=== PATIENT | female | born 1945 | race Caucasian/White ===

== ENCOUNTER 2016-12-14 12:14 | Inpatient (IN) | payer OTHER, MEDICARE ==
[~2016-12-14] VITALS: Ht 154.9 cm; Wt 81.0 kg
[~2016-12-14 12:14] MED LIST: 1-ME1LIQ OR; ASPI81TA82 PO; BENA10 PO; GABA300C3 PO; LOVA20TA PO; MAGN250T9 OR; METO100T PO; POTA595T5 PO
[2016-12-20] MEDS ORDERED: PANT40TA3 PO ×2 (14:41)
[2016-12-20] MEDS ORDERED: POTA-163 PO ×2 (14:41)
[2016-12-20] MEDS ORDERED: GABA300C5 PO ×2 (14:41)
[2016-12-20] MEDS ORDERED: METO50TA PO ×2 (14:41)
[2016-12-20] MEDS ORDERED: MAGN400T2 PO ×2 (14:41)
[2016-12-20] MEDS ORDERED: METF500T PO ×2 (14:41)
[2016-12-20] MEDS ORDERED: LISI-515 PO ×2 (14:41)
[2016-12-20] MEDS ORDERED: LOVA20TA PO ×2 (14:41)
[2016-12-20] MEDS ORDERED: ASPI-110 PO ×2 (14:42)
[2016-12-20] MEDS ORDERED: PYRI1TAB5 PO ×2 (14:42)
[2016-12-22] VITALS (11 sets, daily range): BP systolic 114–153; BP diastolic 50–89; PULSE 60–75; RESP 10–16; TEMP 98.1–98.6; O2SAT 92–98
[2016-12-22] MEDS ORDERED: PROPOFOL 1000 MG/100 ML BTL IV ONE (05:00)
[2016-12-22] MEDS ORDERED: ceFAZolin 2 GM PREMIX 50 ML IV SCH (06:15)
[2016-12-22] MEDS ORDERED: SODIUM CHLORIDE 0.9% FLUSH 10 ML FLUSH IV FLUSH PRN ×3 (06:15→15:45)
[2016-12-22] MEDS ORDERED: METOPROLOL TARTRATE 25 MG TAB PO SCH (06:15)
[2016-12-22] MEDS ORDERED: CHLORHEXIDINE GLUCONATE 2 % 1 PACK (2 CLOTHS) TOPICAL PRN (06:15)
[2016-12-22] MEDS ORDERED: CHLORHEXIDINE GLUCONATE 4% SOLN 120 ML BTL TOPICAL SCH (06:15)
[2016-12-22] MEDS ORDERED: METOPROLOL TARTRATE 25 MG TAB PO PRN (06:15)
[2016-12-22] MEDS ORDERED: LACTATED RINGER'S 1000 ML IV PRN (06:15)
[2016-12-22] MEDS ORDERED: POVIDONE IODINE 5% (ANTISEPSIS KIT) 4 APPLICATIONS EACH NARE PRN (06:15)
[2016-12-22] MEDS ORDERED: SODIUM CHLORID 0.9% 500 ML IV PRN (06:15)
[2016-12-22] MEDS ORDERED: INSULIN HUMAN REGULAR 1,000 UNITS/10 ML VIAL SQ PRN (06:15)
[2016-12-22] MEDS ORDERED: FAMOTIDINE 20 MG/2 ML VIAL ONE (06:31)
[2016-12-22] MEDS ORDERED: HEPARIN SODIUM - SQ 10,000 UNITS/ML VIAL ONE (06:33)
[2016-12-22] MEDS ORDERED: ceFAZolin 2 GM PREMIX 50 ML ONE (06:33)
[2016-12-22] MEDS ORDERED: CUSTODIOL HTK IRR SOLN 1,000 ML ONE ×3 (06:59→12:42)
[2016-12-22] MEDS ORDERED: MANNITOL INJ 50 ML ONE (06:59)
[2016-12-22] MEDS ORDERED: POTASSIUM CHLORIDE 20 MEQ/10 ML VIAL ONE ×3 (06:59→11:41)
[2016-12-22] MEDS ORDERED: ALBUMIN HUMAN 25% 12.5 GM/50 ML BAGP IV ONE (07:00)
[2016-12-22] MEDS ORDERED: BUPIVACAINE LIPOSO PF 1.3% INJ 20 ML, DEXAMETHASONE INJ 4 MG, MORPHINE INJ 10 MG in SOD... P-ARTICULR SCH (07:00)
[2016-12-22] MEDS ORDERED: HEPARIN SODIUM - IV 10,000 UNITS/10 ML VIAL ONE ×2 (07:00→14:54)
[2016-12-22] MEDS ORDERED: CEFAZOLIN 500 MG in NS IRR BTL 500 ML IRRIGATION SCH (07:30)
[2016-12-22] MEDS ORDERED: INSULIN REGULAR 100 UNITS in NS 100 ML IV SCH (07:30)
[2016-12-22] MEDS ORDERED: POTASSIUM CHLORIDE 40 MEQ/20 ML VIAL ONE ×2 (10:26→12:42)
[2016-12-22] MEDS ORDERED: ceFAZolin INJ 1,000 MG VIAL ONE ×4 (11:39→14:31)
--- NOTE | 2016-12-22 13:19 | HHI.FF ---
Face to Face Verification Diagnosis: (1) Borderline diabetes (2) S/P AVR (aortic valve replacement) Home Health Nursing Order: Signs/symptoms of disease process Wound care and dressing changes Nursing assessment with vital signs Instructions: Heart and Vascular Surgery patients *Special attention to sternal dressing Mandatory frequency Assess and evaluation, 4 days in a row The next week 3X week 2 times a week for 4 weeks 1 time a week for 5 weeks Schedule Heart and Vascular patients for full 60 day certification period Initial visit Review Open Heart Surgery Discharge Instructions (Sternal precautions, Activity, Elastic hose, Incision care, Driving, Incentive spirometry, Smoking, [place], Work and other) Need Betadine to paint incision Medication reconciliation Importance of follow up care/ check on appointments Make calendar record temperature daily When to call [facility] at Home nurse, review instructions, phone list Incentive Spirometry, demonstration Visit 1- Begin discharge instruction for patient family and/ or caregiver using teach back method- Signs and symptoms of infection Disease characteristics Medicines and side effects Foods and nutrition/ appetite Infection control/ hand washing/ hygiene Visit 2- Continue teaching Discharge instructions- include additional information on smoking cessation , sternal dressing (sternal vac) Visit 3- Continue teaching- Cough and deep breathing, incision monitoring. Choose my plate Visit 4- Continue teaching- Discuss limitations Discuss how they are feeling Discuss progress toward goals Remaining visits- continue teaching and monitoring Incentive spirometry Q1 hr x 10, while awake, also use acapella device hourly whole awake Sternal Breast Bone Precautions: NO pushing or pulling, ( pt must use sternal pillow to support chest with all activities and with coughing ( takes up to 3 months breast bone to heal ) Daily incision care: ok to shower daily, no tub bath. Wash all incisions with liquid dial soap, clean wash cloth to each site, rinse and pat dry. Observe for any signs of infection, such as drainage which is dark yellow, mahajan, green or foul smelling. Immediately report to the surgeon any drainage from the chest incision, or legs, and for any abnormal drainage from the chest tube sites. Notify surgeon if any temp >101.5 degrees F. When specialty dressing removed/ or if you do not have one, continue to shower daily as above, then rinse and pat incision dry and paint with betadine daily x 5 days. Allow steri strips to fall off if you have any. Avoid lotions, creams, salves, oils, etc. for the first month Please see attached forms for additional instructions regarding post Open Heart specialty wound vacuum dressings. SHAYNE or Prevena , Dressing to be removed by Nursing staff on F/U appointment: as per DC instructions: PCP in 2 weeks, CV surgeon 2 weeks, Dietetic Intern 3-4 weeks For any questions regarding incisions/ dressing / meds / post op care or above Symptoms, Sunday 8am-5pm Heart & Vascular Surgery Office ( Dr. Fields & Dr. Garza), After Hours / Nights (5pm -8am) Weekends and Holidays Please call [facility] ([facility]) Charge Nurse I have seen patient Marybel Canales on 12/22/16. My clinical findings support the need for the requested home health care services because: Deconditioned w/ increased weakness I certify that my clinical findings support that this patient is homebound because: Post-op weakness Mariama Rivera Dec 22, 2016 13:19
[2016-12-22] MEDS ORDERED: PROTAMINE SULFATE 250 MG/25 ML VIAL IV ONE (13:27)
[2016-12-22] MEDS ORDERED: SODIUM CHLOR 0.9% 250 ML INJ 250 ML IV ONE (13:33)
[2016-12-22] MEDS ORDERED: LACTATED RINGER'S 1000 ML INJ 1,000 ML IV ONE (13:33)
[2016-12-22] MEDS ORDERED: SODIUM CHLORIDE 0.9% INJ 100 ML IV ONE (13:33)
[2016-12-22] MEDS ORDERED: SODIUM CHLOR 0.9% 1000 ML INJ 1,000 ML IV ONE (13:34)
[2016-12-22] MEDS ORDERED: SODIUM CHLORID 0.9% 500 ML INJ 500 ML IV ONE (13:34)
[2016-12-22] MEDS ORDERED: POTASSIUM CHLOR 40 MEQ PREMIX 100 ML ONE (14:53)
[2016-12-22] MEDS ORDERED: DOBUTamine PREMIX DRIP 250 ML IV SCH (15:32)
[2016-12-22] MEDS ORDERED: MAGNESIUM SULFATE INJ 2 GM in SODIUM CHLORIDE 0.9% INJ 100 ML IV PRN ×4 (15:45)
[2016-12-22] MEDS ORDERED: POTASSIUM CHLOR 20 MEQ PREMIX 100 ML IV PRN ×3 (15:45)
[2016-12-22] MEDS ORDERED: NITROGLYCERIN-DEXTROSE INJ 250 ML IV SCH (15:45)
[2016-12-22] MEDS ORDERED: INSULIN REGULAR (IV INFUSION) 100 UNITS in SODIUM CHLORIDE 0.9% INJ 99 ML IV SCH (15:45)
[2016-12-22] MEDS ORDERED: CALCIUM CHLORIDE 10% 1 GRAM/10 ML VIAL IV PRN (15:45)
[2016-12-22] MEDS ORDERED: RESP: ALBUTEROL 2.5 MG/IPRATROPIUM 0.5 MG NEB (PRN) NEB (15:45)
[2016-12-22] MEDS ORDERED: MORPHINE SULFATE 4 MG/ML INJ IV PRN (15:45)
[2016-12-22] MEDS ORDERED: DEXTROSE 50% IN WATER 50 ML VIAL(D50) IV PUSH PRN (15:45)
[2016-12-22] MEDS ORDERED: EPINEPHrine (1:1000) INJ 4 MG in DEXTROSE 5% IN WATER INJ 246 ML IV SCH ×2 (15:45)
[2016-12-22] MEDS ORDERED: MEPERIDINE HCL 25 MG/ML VIAL IV PRN (15:45)
[2016-12-22] MEDS ORDERED: PHENYLEPHRINE INJ 40 MG in DEXTROSE 5% IN WATE 500 ML INJ 496 ML IV SCH ×2 (15:45)
[2016-12-22] MEDS ORDERED: CALCIUM CHLORIDE INJ 1 GM in SODIUM CHLORIDE 0.9% INJ 100 ML IV PRN (15:45)
[2016-12-22] MEDS ORDERED: DOPamine INJ PREMIX 500 ML IV SCH (15:45)
[2016-12-22] MEDS ORDERED: POTASSIUM CHLORIDE 20 MEQ CONTROLLED RELEASE TAB PO PRN ×2 (15:45)
[2016-12-22] MEDS ORDERED: ACETAMINOPHEN 650 MG SUPP RECTAL PRN (15:45)
[2016-12-22] MEDS ORDERED: Post-op Orders (for Pharmacy) MISC OTHER ONE (15:45)
[2016-12-22] MEDS ORDERED: DEXMEDETOMIDINE INJ 200 MCG in SODIUM CHLORIDE 0.9% INJ 50 ML IV SCH (15:45)
[2016-12-22] MEDS ORDERED: RESP: RACEPINEPHRINE 2.25% 0.5 ML NEB NEB PRN (15:45)
[2016-12-22] MEDS ORDERED: ONDANSETRON HCL 4 MG/2 ML VIAL IV PUSH PRN (15:45)
[2016-12-22] MEDS ORDERED: CLEVIDIPINE INJ 50 ML IV SCH (15:45)
[2016-12-22] MEDS ORDERED: hydrALAZINE HCL 20 MG/ML VIAL IV PRN (15:45)
[2016-12-22] MEDS ORDERED: METOPROLOL TARTRATE 5 MG/5 ML VIAL IV PUSH PRN (15:45)
[2016-12-22] MEDS ORDERED: ALBUMIN HUMAN 5% 12.5 GM/250 ML BOTTLE IV PRN (15:45)
[2016-12-22] MEDS ORDERED: LACTATED RINGER'S 1000 ML INJ 500 ML IV PRN (16:00)
[2016-12-22] MEDS ORDERED: MIDAZOLAM HCL 5 MG/5 ML VIAL ONE (16:23)
[2016-12-22] MEDS ORDERED: fentaNYL CITRATE 1000 MCG/20 ML VIAL ONE (16:24)
[2016-12-22] MEDS: ACETAMINOPHEN 1000 MG/100 ML VIAL IV SCH ×2 (16:54→22:37)
--- NOTE | 2016-12-22 17:00 | RADRPT ---
EXAM DATE/TIME: 12/22/2016 16:20 [facility] COMPARISON: No previous studies available for comparison. INDICATIONS : Post open heart surgery. MEDICAL HISTORY : Hypertension. Arthritis. Hypercholesterolemia. Hyperlipidemia SURGICAL HISTORY : section. oophorectomy ENCOUNTER: Initial ACUITY: 1 day PAIN SCORE: Non-responsive. LOCATION: Bilateral chest FINDINGS: ET tube mediastinal drain chest drain and central line are in good position. The heart is enlarged. There is mild interstitial edema present. Minimal peripheral changes are seen in the left base. Th ere is no pneumothorax. CONCLUSION: Postoperative changes as described above. Benny Ferrell MD FACR on December 22, 2016 at 16:58 Board Certified Radiologist. This report was verified electronically.
--- NOTE | 2016-12-22 17:15 | PD.OP ---
cc: Cathie Fields MD Operative Report Date of Surgery: Dec 22, 2016 Preoperative Diagnosis: Postoperative Diagnosis: Procedure: 1. Minimally Invasive AVR with a 23 Mosaic Cinch Tissue Valve 2. Median Sternotomy with Repair of Ascending Aortic Disruption 3. Percutaneous Left Femoral Arterial Cannulation for CPB 4. Perclose Closure of Femoral Artery x 2 5. Intercostal Nerve Block . Surgeon: Cathie Fields Acute Dialysis Registered Nurse(s): Cyndi Lopez Operation and Findings: PREOPERATIVE DIAGNOSIS: 1. Severe Aortic Valve Stenosis 2. Moderate Aortic Insufficiency POSTOPERATIVE DIAGNOSIS: Same PROCEDURE: 1. Minimally Invasive AVR with a 23 Mosaic Cinch Tissue Valve 2. Median Sternotomy with Repair of Ascending Aortic Disruption 3. Percutaneous Left Femoral Arterial Cannulation for CPB 4. Perclose Closure of Femoral Artery x 2 5. Intercostal Nerve Block ANESTHESIA: JORDANA Daugherty MD TUBE SIZER OPERATOR: LARRY Houser INDICATIONS: This is a 71 yo patient with severe Aortic stenosis presenting for surgical correction of their underlying cardiac pathology. PROCEDURE: Standard monitoring lines and Mar catheter were placed. General anesthesia was induced. The patient was prepped and draped in a sterile fashion. The patient was heparinized for cardiopulmonary bypass. The left femoral artery was cannulated percutaneously with a 17 Fr [employer] arterial cannula, following placement of 2 Perclose devices. A 6 cm right anterior thoracotomy was performed and the 3rd rib was shingled. The right internal mammary artery and vein were ligated and divided. An Adair retractor was placed followed by a small chest retractor. The pericardium was opened and a pericardial sling was created using interrupted 0 silk sutures. A small 1 cm incision was made at the 6th intercostal space and an LV vent and pericardial suction were placed through this access port. The right atrium was cannulated directly for venous drainage and cardiopulmonary bypass was instituted. The LV vent was placed through the Right Superior Pulmonary Vein. The aorta was dissected posteriorly for crossclamp placement. An aortic cross-clamp was applied and the heart was arrested using cold blood cardioplegia. Antegrade Custodiol cardioplegia was employed. 1 L of antegrade Custodiol cardioplegia was infused directly into the aortic root. Additionally, hand-held coronary cardioplegia cannula was used during the procedure. The aorta was opened above the sinotubular ridge and the aortic valve was exposed. On opening the aorta, the valve appeared severely and very heavily calcified with retracted cusps. The valve was resected as well as all annular calcification, sized for a 23 mm Mosaic tissue valve which was placed with 2-0 pledgeted Tycron valve sutures. The valve seated well. The aorta was closed with two layers of running 4-0 Prolene suture, the first in a horizontal mattress fashion and the second layer of simple running. The patient systemically rewarmed. The heart was vigorously deaired with a clamp on. Ventricular pacing wire was placed. The clamp was removed, deairing continued. At this point it was noted that her aortic tissue was very friable and not holding the closure stitches. The cross clamp was reapplied and the heart arrested with cardioplegia solution. Additional pledgeted 4-0 Prolene stitches were placed in efforts to obtain a hemostatic aortotomy closure. The tissue was very friable and the sutures not holding. Therefore, it was decided to convert to a median sternotomy to facilitate adequate exposure to fix the aorta. Median sternotomy was performed and the heart exposed anteriorly. The entire suture line was then reinforced with interrupted pledgeted mattress sutures of 4-0 Prolene in addition to application of Floseal and Tacoseal. Satisfactory hemostasis was obtained, although her [place] tissue was noted to be very friable and of very poor tensile strength. Cross-clamp was removed. Upon achieving normothermia and intrinsic cardiac activity, the patient was weaned from cardiopulmonary bypass. Strict hemostasis was assured and Protamine administered. Decannulation was carried out without incident and both the femoral artery was closed with the Perclose devices. There was no adverse reaction. Intraoperative ANA PAULA following the procedure showed a well-seated aortic valve with no perivalvular leak and preserved ventricular function. The closure was undertaken. 2 chest tubes were placed. The sternum was approximated using sternal wires. The muscular and fascial layer were then closed in 3 layers. The 3rd rib was reapproximated to the sternum using an interrupted Ethobond suture and to the adjacent rib with a 0 Vicryl suture. Intercostal nerve block was preformed at the level of the incision as well as 2 rib spaces above and below using Exparel solution. The fascia and pectoralis were closed with 0 Vicryl. The subcutaneous tissue was closed using a running 3-0 Monocryl suture. The skin was closed with 4-0 Monocryl. Sterile dressings were placed. At the end of the operation, all sponge, instruments, and needle counts were correct. The patient was transferred to the CVICU in stable condition. Cathie Fields MD Dec 22, 2016 17:15
[2016-12-22 17:40] LABS: APTT (PATIENT) 29.8 SEC (24.3-30.1); INTERNATIONAL NORMALIZED RATIO 1.2 RATIO; PROTHROMBIN TIME - PATIENT 13.4 SEC (9.8-11.6)
[2016-12-22] MEDS: RESP: ALBUTEROL 2.5 MG/IPRATROPIUM 0.5 MG NEB (SCH) NEB ×2 (18:40→21:07)
[2016-12-22] MEDS: AMIODARONE 200 MG TAB PO SCH (22:35)
[2016-12-22] MEDS: SODIUM CHLORIDE 0.9% FLUSH 10 ML FLUSH IV FLUSH SCH (22:37)
[2016-12-23] VITALS (13 sets, daily range): BP systolic 86–131; BP diastolic 50–67; PULSE 77–111; RESP 11–22; TEMP 98.5–101.3; O2SAT 92–100
[2016-12-23] MEDS: ceFAZolin 2 GM PREMIX 50 ML IV SCH ×3 (00:18→17:34)
[2016-12-23] MEDS: ACETAMINOPHEN 1000 MG/100 ML VIAL IV SCH ×2 (03:38→10:08)
[2016-12-23] MEDS: RESP: ALBUTEROL 2.5 MG/IPRATROPIUM 0.5 MG NEB (SCH) NEB ×4 (04:31→20:42)
[2016-12-23 05:15] LABS: HEMATOCRIT 26.3 % (35.0-46.0); MEAN CELL VOLUME 91.4 FL (80.0-100.0); MEAN CORPUSCULAR HEMOGLOBIN 31.1 PG (27.0-34.0); MEAN CORPUSCULAR HGB CONC 34.1 % (32.0-36.0); PLATELET COUNT 86 TH/MM3 (150-450); RED BLOOD COUNT 2.87 MIL/MM3 (4.00-5.30); RED CELL DISTRIBUTION WIDTH 14.1 % (11.6-17.2); WHITE BLOOD COUNT 9.2 TH/MM3 (4.0-11.0)
--- NOTE | 2016-12-23 05:27 | RADRPT ---
EXAM DATE/TIME: 12/23/2016 04:01 [facility] COMPARISON: CHEST SINGLE AP, December 22, 2016, 16:20. INDICATIONS : Shortness of breath, possible pulmonary disease. MEDICAL HISTORY : Hypercholesterolemia. Hypertension Arthritis. SURGICAL HISTORY : section. CABG. Oophrectomy ENCOUNTER: Subsequent ACUITY: 3 days PAIN SCORE: Non-responsive. LOCATION: Bilateral chest FINDINGS: A single view of the chest demonstrates persistent bibasilar patchy airspace disease which may be sli ghtly worse when compared to prior. There also could be developing effusions. Heart size remains prom inent. Findings of prior CABG with median sternotomy wires and mediastinal drains. Right IJ central v enous catheter with the tip projecting over the central venous system. Endotracheal tube and nasogast alexandr tubes have been removed. CONCLUSION: 1. Worsening bibasilar airspace disease with possible developing effusions. 2. Stable postsurgical changes with findings of prior CABG. 3. Interval removal of the endotracheal and nasogastric tubes. Mediastinal drains and the right IJ ce ntral venous catheter are unchanged in position. 4. Stable cardiomegaly. Soy Woods MD on December 23, 2016 at 5:22 Board Certified Radiologist. This report was verified electronically.
[2016-12-23 05:33] LABS: REVIEW FLAG FINAL
[2016-12-23 05:51] LABS: BICARBONATE 29.6 MEQ/L (21.0-32.0); POTASSIUM 3.6 MEQ/L (3.5-5.1)
[2016-12-23] MEDS: PANTOPRAZOLE SOD 40 MG DELAYED RELEASE TAB PO SCH (06:00)
[2016-12-23] MEDS: ACETAMINOPHEN/HYDROcodone 325 MG/5 MG TAB PO PRN ×3 (06:51→22:12)
--- NOTE | 2016-12-23 08:12 | PD.CAR.PN ---
CVT Progress Note Subjective/Hospital Course: 71 yo female with symptomatic and AI presenting for AVR 12/22 Underwent 1. Minimally Invasive AVR with a 23 Mosaic Cinch Tissue Valve 2. Median Sternotomy with Repair of Ascending Aortic Disruption 3. Percutaneous Left Femoral Arterial Cannulation for CPB 4. Perclose Closure of Femoral Artery x 2 5. Intercostal Nerve Block 12/23 Extubated and tolerating Beta annamarie therapy Diuresis Maintain CT to drainage Keep in ICU for today Incentive spirometry Objective: Vital Signs Date Time Temp Pulse Resp B/P Pulse Ox O2 Delivery O2 Flow Rate FiO2 12/23/16 06:36 22 12/23/16 04:10 20 12/23/16 04:00 100 12/23/16 04:00 94 Simple Mask 10.00 12/23/16 04:00 99.7 100 22 94 118/61 12/23/16 03:30 107 12/23/16 03:00 90 Simple Mask 8.00 12/23/16 02:33 96 Nasal Cannula 4 36 12/23/16 02:30 90 Nasal Cannula 6.00 12/23/16 02:00 92 Nasal Cannula 4.00 12/23/16 01:45 99.7 12/23/16 00:15 98 50 12/23/16 00:00 99.7 77 11 114/65 97 117/60 12/23/16 00:00 50 12/23/16 00:00 77 12/22/16 23:30 74 12/22/16 22:20 96 50 12/22/16 22:00 98.6 12/22/16 22:00 50 12/22/16 21:00 50 12/22/16 20:00 40 12/22/16 20:00 75 12/22/16 20:00 75 12/22/16 20:00 98.6 75 15 115/64 92 116/74 12/22/16 19:40 15 12/22/16 19:38 92 40 12/22/16 19:00 40 12/22/16 17:45 94 40 12/22/16 17:10 93 40 12/22/16 16:35 93 50 12/22/16 16:15 98.4 12/22/16 16:15 98.4 74 10 118/66 92 114/50 12/22/16 16:15 74 12/22/16 16:12 98 50 Labs: Laboratory Tests Test 12/23/16 05:00 White Blood Count 9.2 TH/MM3 (4.0-11.0) Red Blood Count 2.87 MIL/MM3 (4.00-5.30) Hemoglobin 8.9 GM/DL (11.6-15.3) Hematocrit 26.3 % (35.0-46.0) Mean Corpuscular Volume 91.4 FL (80.0-100.0) Mean Corpuscular Hemoglobin 31.1 PG (27.0-34.0) Mean Corpuscular Hemoglobin 34.1 % Concent (32.0-36.0) Red Cell Distribution Width 14.1 % (11.6-17.2) Platelet Count 86 TH/MM3 (150-450) Mean Platelet Volume 9.8 FL (7.0-11.0) Sodium Level 146 MEQ/L (136-145) Potassium Level 3.6 MEQ/L (3.5-5.1) Chloride Level 108 MEQ/L (98-107) Carbon Dioxide Level 29.6 MEQ/L (21.0-32.0) Anion Gap 8 MEQ/L (5-15) Blood Urea Nitrogen 19 MG/DL (7-18) Creatinine 0.76 MG/DL (0.50-1.00) Estimat Glomerular Filtration 75 ML/MIN (>89) Rate Random Glucose 100 MG/DL (74-106) Calcium Level 8.2 MG/DL (8.5-10.1) Magnesium Level 2.0 MG/DL (1.5-2.5) Result Diagram: 12/23/16 0500 12/23/16 0500 (1) Aortic stenosis (2) S/P AVR (aortic valve replacement) Problem Qualifiers (1) Aortic stenosis: Qualified Code: I35.0 - Nonrheumatic aortic valve stenosis Cathie Fields MD Dec 23, 2016 08:12
[2016-12-23] MEDS ORDERED: FUROSEMIDE 40 MG/4 ML VIAL IV PUSH ONE ×2 (08:15→08:30)
[2016-12-23] MEDS: KETOROLAC TROMETHAMINE 30 MG/ML (IVP) VIAL IV PUSH PRN ×2 (08:44→22:13)
[2016-12-23] MEDS: PRAVASTATIN SOD 20 MG TAB PO SCH (08:45)
[2016-12-23] MEDS: GABAPENTIN 300 MG CAP PO SCH ×3 (08:46→17:34)
[2016-12-23] MEDS: AMIODARONE 200 MG TAB PO SCH ×2 (08:46→22:06)
[2016-12-23] MEDS: MAGNESIUM OXIDE 400 MG TAB PO SCH (08:46)
[2016-12-23] MEDS: SODIUM CHLORIDE 0.9% FLUSH 10 ML FLUSH IV FLUSH SCH ×2 (08:46→22:07)
[2016-12-23] MEDS ORDERED: METOPROLOL TARTRATE 50 MG TAB PO SCH ×2 (09:00)
[2016-12-23] MEDS ORDERED: ASPIRIN 81 MG CHEW TAB PO SCH (09:00)
[2016-12-23] MEDS ORDERED: DEXTROSE 50% IN WATER 50 ML VIAL(D50) IV PUSH PRN ×2 (13:15→20:45)
[2016-12-23] MEDS ORDERED: GLUCAGON 1 MG/ML VIAL OTHER PRN ×2 (13:15→20:45)
[2016-12-23] MEDS: INDIVIDUALIZED INSULIN NOVOLOG SUPPLEMENTAL SCALE SQ SCH ×3 (13:59→22:00)
--- NOTE | 2016-12-23 15:32 | EKG ---
Date Performed: 12/23/2016 Time Performed: 05:30:06 PTAGE: 71 years EKG: Sinus rhythm . --- Suspect arm lead reversal - only aVF, V1-V6 analyzed --- Possible left ventricular hypertrophy Extensive ST-T changes are probably due to ventricular hypertrophy Abnormal ECG Compared to the PREVIOUS TRACING from 12/20/16, probable arm lead reversal affects comparison DOCTOR: Nba Pretty Interpretating Date/Time 12/23/2016 15:31:45
[2016-12-23] MEDS ORDERED: PLEASE DISCONTINUE PREVIOUS SUPPLEMENTAL SCALE INSULIN ORDERS ONE (20:45)
[2016-12-23] MEDS ORDERED: INDIVIDUALIZED INSULIN NOVOLOG SUPPLEMENTAL SCALE SQ SCH (21:00)
[2016-12-23] MEDS: METOPROLOL TARTRATE 25 MG TAB PO SCH (22:06)
[2016-12-24] VITALS (23 sets, daily range): BP systolic 101–150; BP diastolic 45–72; PULSE 70–94; RESP 16–20; TEMP 98.2–100.3; O2SAT 92–100
[2016-12-24] MEDS: ceFAZolin 2 GM PREMIX 50 ML IV SCH ×2 (00:10→08:27)
[2016-12-24 05:13] LABS: HEMATOCRIT 24.6 % (35.0-46.0); MEAN CELL VOLUME 92.1 FL (80.0-100.0); MEAN CORPUSCULAR HEMOGLOBIN 30.9 PG (27.0-34.0); MEAN CORPUSCULAR HGB CONC 33.5 % (32.0-36.0); PLATELET COUNT 89 TH/MM3 (150-450); RED BLOOD COUNT 2.67 MIL/MM3 (4.00-5.30); RED CELL DISTRIBUTION WIDTH 14.3 % (11.6-17.2); WHITE BLOOD COUNT 9.2 TH/MM3 (4.0-11.0)
[2016-12-24 05:17] LABS: REVIEW FLAG FINAL
[2016-12-24] MEDS: PANTOPRAZOLE SOD 40 MG DELAYED RELEASE TAB PO SCH (05:17)
[2016-12-24] MEDS: ACETAMINOPHEN/HYDROcodone 325 MG/5 MG TAB PO PRN ×4 (05:18→23:35)
[2016-12-24 05:28] LABS: BICARBONATE 36.6 MEQ/L (21.0-32.0)
[2016-12-24] MEDS: INDIVIDUALIZED INSULIN NOVOLOG SUPPLEMENTAL SCALE SQ SCH ×5 (06:10→21:00)
[2016-12-24] MEDS: RESP: ALBUTEROL 2.5 MG/IPRATROPIUM 0.5 MG NEB (SCH) NEB ×2 (08:13→15:59)
--- NOTE | 2016-12-24 08:25 | PD.CAR.PN ---
CVT Progress Note Subjective/Hospital Course: 71 yo female with symptomatic and AI presenting for AVR 12/22 Underwent 1. Minimally Invasive AVR with a 23 Mosaic Cinch Tissue Valve 2. Median Sternotomy with Repair of Ascending Aortic Disruption 3. Percutaneous Left Femoral Arterial Cannulation for CPB 4. Perclose Closure of Femoral Artery x 2 5. Intercostal Nerve Block 12/23 Extubated and tolerating Beta annamarie therapy Diuresis Maintain CT to drainage Keep in ICU for today Incentive spirometry 12/24 Doing well Transfer [facility] Pulmonary toiletry Ambulate Objective: Vital Signs Date Time Temp Pulse Resp B/P Pulse Ox O2 Delivery O2 Flow Rate FiO2 12/24/16 08:03 95 Nasal Cannula 4.00 12/24/16 08:02 99.3 85 16 118/64 97 Arterial Line 12/24/16 08:02 97 Nasal Cannula 4.00 12/24/16 06:24 20 12/24/16 04:00 95 Nasal Cannula 4.00 Humidified 12/24/16 04:00 92 12/24/16 04:00 99.9 92 20 119/63 92 12/24/16 00:00 100.0 90 20 104/51 97 12/24/16 00:00 90 12/23/16 23:58 96 Nasal Cannula 4.00 Humidified 12/23/16 23:15 20 12/23/16 20:42 94 Nasal Cannula 5.00 12/23/16 20:00 101.3 100 20 131/67 95 12/23/16 19:45 95 Nasal Cannula 5.00 Humidified 12/23/16 19:00 96 12/23/16 15:00 98.5 98 16 119/54 94 12/23/16 15:00 98 12/23/16 15:00 92 Nasal Cannula 4.00 Humidified 12/23/16 15:00 98 12/23/16 11:56 74 12/23/16 11:56 77 12/23/16 11:56 100 Nasal Cannula 4.00 Humidified 12/23/16 11:56 98.5 77 16 86/51 100 12/23/16 09:42 92 Nasal Cannula 6.00 Labs: Laboratory Tests Test 12/24/16 04:40 White Blood Count 9.2 TH/MM3 (4.0-11.0) Red Blood Count 2.67 MIL/MM3 (4.00-5.30) Hemoglobin 8.2 GM/DL (11.6-15.3) Hematocrit 24.6 % (35.0-46.0) Mean Corpuscular Volume 92.1 FL (80.0-100.0) Mean Corpuscular Hemoglobin 30.9 PG (27.0-34.0) Mean Corpuscular Hemoglobin 33.5 % Concent (32.0-36.0) Red Cell Distribution Width 14.3 % (11.6-17.2) Platelet Count 89 TH/MM3 (150-450) Mean Platelet Volume 10.7 FL (7.0-11.0) Sodium Level 142 MEQ/L (136-145) Potassium Level 4.0 MEQ/L (3.5-5.1) Chloride Level 105 MEQ/L (98-107) Carbon Dioxide Level 36.6 MEQ/L (21.0-32.0) Anion Gap 0 MEQ/L (5-15) Blood Urea Nitrogen 34 MG/DL (7-18) Creatinine 0.76 MG/DL (0.50-1.00) Estimat Glomerular Filtration 75 ML/MIN (>89) Rate Random Glucose 141 MG/DL (74-106) Calcium Level 7.9 MG/DL (8.5-10.1) Result Diagram: 12/24/1643912/24/16439 (1) Aortic stenosis (2) S/P AVR (aortic valve replacement) Problem Qualifiers (1) Aortic stenosis: Qualified Code: I35.0 - Nonrheumatic aortic valve stenosis Cathie Fields MD Dec 24, 2016 08:25
[2016-12-24] MEDS ORDERED: DEXTROSE 50% IN WATER 50 ML VIAL(D50) IV PRN (08:30)
[2016-12-24] MEDS ORDERED: SOD PHOSPHATE/SOD BIPHOSPHATE (ADULT) ENEMA 133ML RECTAL PRN (08:30)
[2016-12-24] MEDS ORDERED: GLUCAGON 1 MG/ML VIAL OTHER PRN (08:30)
[2016-12-24] MEDS ORDERED: BISACODYL 10 MG SUPP RECTAL PRN (08:30)
[2016-12-24] MEDS: GABAPENTIN 300 MG CAP PO SCH (08:32)
[2016-12-24] MEDS: PRAVASTATIN SOD 20 MG TAB PO SCH (08:32)
[2016-12-24] MEDS: METOPROLOL TARTRATE 25 MG TAB PO SCH ×2 (08:32→20:10)
[2016-12-24] MEDS: AMIODARONE 200 MG TAB PO SCH ×2 (08:32→20:10)
[2016-12-24] MEDS: MAGNESIUM OXIDE 400 MG TAB PO SCH (08:32)
[2016-12-24] MEDS: SODIUM CHLORIDE 0.9% FLUSH 10 ML FLUSH IV FLUSH SCH ×2 (08:40→20:25)
[2016-12-24] MEDS: ASPIRIN 81 MG CHEW TAB PO SCH (08:43)
[2016-12-24] MEDS: MAGNESIUM HYDROXIDE SUSP 30 ML CUP PO SCH (09:15)
[2016-12-24] MEDS: MULTIVITAMINS/MINERALS THERAPEUTIC TAB PO SCH (09:15)
[2016-12-24] MEDS: CLOPIDOGREL 75 MG TAB PO SCH (09:15)
[2016-12-24] MEDS: KETOROLAC TROMETHAMINE 30 MG/ML (IVP) VIAL IV PUSH PRN (10:51)
[2016-12-24] MEDS: GABAPENTIN 400 MG CAP PO SCH (20:10)
[2016-12-24] MEDS: DOCUSATE SODIUM 100 MG CAP PO SCH (20:10)
[2016-12-24] MEDS: SENNOSIDES 8.6 MG TAB PO SCH (20:10)
[2016-12-25] VITALS (26 sets, daily range): BP systolic 104–161; BP diastolic 58–79; PULSE 72–99; RESP 16–18; TEMP 98.2–99.4; O2SAT 96–100
[2016-12-25] MEDS: PANTOPRAZOLE SOD 40 MG DELAYED RELEASE TAB PO SCH (04:27)
[2016-12-25] MEDS: ACETAMINOPHEN/HYDROcodone 325 MG/5 MG TAB PO PRN ×4 (04:28→17:48)
[2016-12-25 04:53] LABS: AUTOMATED NEUTROPHIL # 6.2 TH/MM3 (1.8-7.7); BASOPHIL % 0.3 % (0.0-2.0); EOSINOPHIL % 0.5 % (0.0-4.0); LYMPH % 15.9 % (9.0-44.0); LYMPHOCYTE # 1.4 TH/MM3 (1.0-4.8); MEAN CELL VOLUME 92.1 FL (80.0-100.0); MEAN CORPUSCULAR HEMOGLOBIN 31.4 PG (27.0-34.0); MEAN CORPUSCULAR HGB CONC 34.1 % (32.0-36.0); NEUT % 69.3 % (16.0-70.0); PLATELET COUNT 94 TH/MM3 (150-450); RED CELL DISTRIBUTION WIDTH 14.4 % (11.6-17.2); WHITE BLOOD COUNT 8.9 TH/MM3 (4.0-11.0)
[2016-12-25 04:54] LABS: HEMO FLAGS AUTO DIFF
[2016-12-25 05:14] LABS: BICARBONATE 36.3 MEQ/L (21.0-32.0); MAGNESIUM 2.2 MG/DL (1.5-2.5); POTASSIUM 4.1 MEQ/L (3.5-5.1)
[2016-12-25 05:57] LABS: PLATELET ESTIMATE SMEAR LOW (NORMAL); PLATELET MORPHOLOGY NORMAL (NORMAL); SCAN/DIFF AUTO DIFF CONFIRMED
[2016-12-25] MEDS: INDIVIDUALIZED INSULIN NOVOLOG SUPPLEMENTAL SCALE SQ SCH ×4 (06:08→20:24)
[2016-12-25] MEDS: RESP: ALBUTEROL 2.5 MG/IPRATROPIUM 0.5 MG NEB (SCH) NEB ×3 (08:00→21:01)
[2016-12-25] MEDS: MULTIVITAMINS/MINERALS THERAPEUTIC TAB PO SCH (09:00)
[2016-12-25] MEDS: SODIUM CHLORIDE 0.9% FLUSH 10 ML FLUSH IV FLUSH SCH ×2 (09:00→20:20)
[2016-12-25] MEDS ORDERED: BISACODYL 10 MG SUPP RECTAL ONE (09:30)
[2016-12-25] MEDS: AMIODARONE 200 MG TAB PO SCH ×2 (09:53→20:20)
[2016-12-25] MEDS: GABAPENTIN 400 MG CAP PO SCH ×2 (09:53→20:20)
[2016-12-25] MEDS: CLOPIDOGREL 75 MG TAB PO SCH (09:53)
[2016-12-25] MEDS: DOCUSATE SODIUM 100 MG CAP PO SCH ×2 (09:53→20:20)
[2016-12-25] MEDS: MAGNESIUM OXIDE 400 MG TAB PO SCH (09:53)
[2016-12-25] MEDS: METOPROLOL TARTRATE 25 MG TAB PO SCH ×2 (09:54→20:20)
[2016-12-25] MEDS: MAGNESIUM HYDROXIDE SUSP 30 ML CUP PO SCH (09:54)
[2016-12-25] MEDS: ASPIRIN 81 MG CHEW TAB PO SCH (09:54)
[2016-12-25] MEDS: POLYETHYLENE GLYCOL 17 GM PKG PO SCH (09:54)
[2016-12-25] MEDS: PRAVASTATIN SOD 20 MG TAB PO SCH (09:54)
[2016-12-25] MEDS ORDERED: FUROSEMIDE 40 MG/4 ML VIAL IV PUSH ONE (11:30)
[2016-12-25] MEDS ORDERED: POTASSIUM CHLORIDE 20 MEQ CONTROLLED RELEASE TAB PO ONE (11:30)
--- NOTE | 2016-12-25 14:41 | PD.CAR.PN ---
CVT Progress Note Subjective/Hospital Course: 71 yo female with symptomatic and AI presenting for AVR PMH: DM, GERD, HTN, HLP, venous insuff , mild non=hemodynamically significant coronary disease, preserved LV function 12/22 Underwent 1. Minimally Invasive AVR with a 23 Mosaic Cinch Tissue Valve 2. Median Sternotomy with Repair of Ascending Aortic Disruption 3. Percutaneous Left Femoral Arterial Cannulation for CPB 4. Perclose Closure of Femoral Artery x 2 5. Intercostal Nerve Block 12/23 Extubated and tolerating Beta annamarie therapy Diuresis Maintain CT to drainage Keep in ICU for today Incentive spirometry 12/24 Doing well Transfer [facility] Pulmonary toiletry Ambulate 12/25 chest tubes dc without difficulty on nasal cannula continue pulm toileting continue diuresis Objective: GENERAL: SKIN: Warm and dry. prevena to chest / right upper chest incision intact and well approximated HEAD: Normocephalic. EYES: No scleral icterus. No injection or drainage. NECK: Supple, trachea midline. No JVD or lymphadenopathy. CARDIOVASCULAR: Regular rate and rhythm without murmurs, gallops, or rubs. mild edema RESPIRATORY: Breath sounds equal bilaterally. No accessory muscle use. GASTROINTESTINAL: Abdomen soft, non-tender, nondistended. MUSCULOSKELETAL: No cyanosis, or edema. BACK: Nontender without obvious deformity. No CVA tenderness. Vital Signs Date Time Temp Pulse Resp B/P Pulse Ox O2 Delivery O2 Flow Rate FiO2 12/25/16 14:02 79 12/25/16 13:05 78 12/25/16 12:10 80 12/25/16 11:35 18 12/25/16 11:00 98.6 96 18 112/74 97 12/25/16 11:00 Nasal Cannula 3.00 12/25/16 11:00 76 12/25/16 10:00 99 12/25/16 09:00 92 12/25/16 08:14 100 Nasal Cannula 2.00 12/25/16 08:00 98.2 96 16 136/74 98 12/25/16 08:00 Room Air 12/25/16 08:00 96 12/25/16 06:04 79 12/25/16 05:00 77 12/25/16 04:00 85 12/25/16 04:00 98.9 78 18 107/66 100 12/25/16 03:12 100 Nasal Cannula 4.00 12/25/16 03:00 72 12/25/16 02:00 78 12/25/16 01:00 76 12/25/16 00:00 80 12/25/16 00:00 100 Nasal Cannula 4.00 12/24/16 23:19 98.7 75 18 113/63 100 12/24/16 23:00 70 12/24/16 22:59 100 Nasal Cannula 4.00 12/24/16 22:00 74 12/24/16 21:40 98.8 12/24/16 21:00 82 12/24/16 20:30 99.8 12/24/16 20:00 90 12/24/16 20:00 98 Nasal Cannula 4.00 12/24/16 19:26 99.6 90 20 127/64 98 12/24/16 19:00 90 12/24/16 18:00 94 12/24/16 17:03 91 12/24/16 17:01 98.3 92 19 150/72 93 12/24/16 15:36 85 12/24/16 15:29 92 Nasal Cannula 4.00 12/24/16 15:29 98.6 80 18 124/63 92 Labs: Laboratory Tests Test 12/25/16 04:43 White Blood Count 8.9 TH/MM3 (4.0-11.0) Red Blood Count 2.50 MIL/MM3 (4.00-5.30) Hemoglobin 7.8 GM/DL (11.6-15.3) Hematocrit 23.0 % (35.0-46.0) Mean Corpuscular Volume 92.1 FL (80.0-100.0) Mean Corpuscular Hemoglobin 31.4 PG (27.0-34.0) Mean Corpuscular Hemoglobin 34.1 % Concent (32.0-36.0) Red Cell Distribution Width 14.4 % (11.6-17.2) Platelet Count 94 TH/MM3 (150-450) Mean Platelet Volume 9.5 FL (7.0-11.0) Neutrophils (%) (Auto) 69.3 % (16.0-70.0) Lymphocytes (%) (Auto) 15.9 % (9.0-44.0) Monocytes (%) (Auto) 14.0 % (0.0-8.0) Eosinophils (%) (Auto) 0.5 % (0.0-4.0) Basophils (%) (Auto) 0.3 % (0.0-2.0) Neutrophils # (Auto) 6.2 TH/MM3 (1.8-7.7) Lymphocytes # (Auto) 1.4 TH/MM3 (1.0-4.8) Monocytes # (Auto) 1.3 TH/MM3 (0-0.9) Eosinophils # (Auto) 0.0 TH/MM3 (0-0.4) Basophils # (Auto) 0.0 TH/MM3 (0-0.2) CBC Comment AUTO DIFF Differential Comment AUTO DIFF CONFIRMED Platelet Estimate LOW (NORMAL) Platelet Morphology Comment NORMAL (NORMAL) Basophilic Stippling FAINT (NORMAL) Sodium Level 142 MEQ/L (136-145) Potassium Level 4.1 MEQ/L (3.5-5.1) Chloride Level 102 MEQ/L (98-107) Carbon Dioxide Level 36.3 MEQ/L (21.0-32.0) Anion Gap 4 MEQ/L (5-15) Blood Urea Nitrogen 24 MG/DL (7-18) Creatinine 0.54 MG/DL (0.50-1.00) Estimat Glomerular Filtration 111 ML/MIN Rate (>89) Random Glucose 126 MG/DL (74-106) Calcium Level 8.0 MG/DL (8.5-10.1) Magnesium Level 2.2 MG/DL (1.5-2.5) Result Diagram: 12/25/1644212/25/16442 Telemetry: NSR (1) Aortic stenosis (2) S/P AVR (aortic valve replacement) Plan: ASA, plavix , BB statin continue pulm toileting nebs, ezpap acapella ambulate chest tubes dc CM to eval C (3) Blood loss anemia Plan: start on ferrous sulfate Problem Qualifiers (1) Aortic stenosis: Qualified Code: I35.0 - Nonrheumatic aortic valve stenosis Mariama Rivera Dec 25, 2016 14:41
[2016-12-25] MEDS: FERROUS SULFATE 325 MG (65 MG ELEMENTAL IRON) TAB PO SCH (17:11)
[2016-12-25] MEDS: SENNOSIDES 8.6 MG TAB PO SCH (20:20)
[2016-12-26] VITALS (29 sets, daily range): BP systolic 113–144; BP diastolic 67–77; PULSE 64–104; RESP 18–20; TEMP 97.5–99; O2SAT 91–100
[2016-12-26] MEDS: ACETAMINOPHEN/HYDROcodone 325 MG/5 MG TAB PO PRN ×2 (01:45→08:58)
[2016-12-26] MEDS: PANTOPRAZOLE SOD 40 MG DELAYED RELEASE TAB PO SCH (05:35)
[2016-12-26 05:52] LABS: HEMATOCRIT 23.7 % (35.0-46.0); MEAN CELL VOLUME 93.1 FL (80.0-100.0); MEAN CORPUSCULAR HEMOGLOBIN 30.7 PG (27.0-34.0); MEAN CORPUSCULAR HGB CONC 32.9 % (32.0-36.0); PLATELET COUNT 116 TH/MM3 (150-450); RED BLOOD COUNT 2.54 MIL/MM3 (4.00-5.30); RED CELL DISTRIBUTION WIDTH 14.1 % (11.6-17.2); REVIEW FLAG FINAL; WHITE BLOOD COUNT 8.5 TH/MM3 (4.0-11.0)
[2016-12-26 06:05] LABS: BICARBONATE 33.4 MEQ/L (21.0-32.0); POTASSIUM 3.7 MEQ/L (3.5-5.1)
[2016-12-26] MEDS: INDIVIDUALIZED INSULIN NOVOLOG SUPPLEMENTAL SCALE SQ SCH ×4 (06:17→20:34)
--- NOTE | 2016-12-26 06:31 | RADRPT ---
EXAM DATE/TIME: 12/26/2016 05:39 [facility] COMPARISON: CHEST SINGLE AP, December 23, 2016, 4:01. INDICATIONS : Short of breath. MEDICAL HISTORY : Hypercholesterolemia. Hypertension Arthritis. SURGICAL HISTORY : section. CABG. Oophrectomy ENCOUNTER: Subsequent ACUITY: 1 week PAIN SCORE: 0/10 LOCATION: Bilateral chest FINDINGS: Bilateral airspace consolidation again noted, slightly worse. There is a small moderate pleural effus ion on the left, probably slightly worse. I don't see a pneumothorax. Mild cardiomegaly is stable. Patient has had previous median sternotomy. Right internal jugular central venous catheter has been removed. CONCLUSION: Modest worsening bibasilar consolidation and left pleural effusion. Please see above. Right IJ line o ut. Sage De La Vega MD on December 26, 2016 at 6:29 Board Certified Radiologist. This report was verified electronically.
[2016-12-26] MEDS ORDERED: FUROSEMIDE 40 MG/4 ML VIAL IV PUSH ONE (08:15)
[2016-12-26] MEDS ORDERED: POTASSIUM CHLORIDE 10 MEQ CONTROLLED RELEASE TAB PO ONE (08:15)
[2016-12-26] MEDS: CLOPIDOGREL 75 MG TAB PO SCH (08:52)
[2016-12-26] MEDS: POLYETHYLENE GLYCOL 17 GM PKG PO SCH (08:52)
[2016-12-26] MEDS: METOPROLOL TARTRATE 25 MG TAB PO SCH ×2 (08:52→20:32)
[2016-12-26] MEDS: GABAPENTIN 400 MG CAP PO SCH ×2 (08:52→20:32)
[2016-12-26] MEDS: ASPIRIN 81 MG CHEW TAB PO SCH (08:52)
[2016-12-26] MEDS: MULTIVITAMINS/MINERALS THERAPEUTIC TAB PO SCH (08:52)
[2016-12-26] MEDS: DOCUSATE SODIUM 100 MG CAP PO SCH ×2 (08:52→20:32)
[2016-12-26] MEDS: PRAVASTATIN SOD 20 MG TAB PO SCH (08:52)
[2016-12-26] MEDS: MAGNESIUM HYDROXIDE SUSP 30 ML CUP PO SCH (08:53)
[2016-12-26] MEDS: SODIUM CHLORIDE 0.9% FLUSH 10 ML FLUSH IV FLUSH SCH ×2 (08:53→20:33)
[2016-12-26] MEDS: AMIODARONE 200 MG TAB PO SCH ×2 (08:53→20:33)
[2016-12-26] MEDS: MAGNESIUM OXIDE 400 MG TAB PO SCH (08:54)
[2016-12-26] MEDS: RESP: ALBUTEROL 2.5 MG/IPRATROPIUM 0.5 MG NEB (SCH) NEB ×3 (09:38→20:21)
--- NOTE | 2016-12-26 09:59 | PD.CAR.PN ---
CVT Progress Note Subjective/Hospital Course: 71 yo female with symptomatic and AI presenting for AVR PMH: DM, GERD, HTN, HLP, venous insuff , mild non=hemodynamically significant coronary disease, preserved LV function 12/22 Underwent 1. Minimally Invasive AVR with a 23 Mosaic Cinch Tissue Valve 2. Median Sternotomy with Repair of Ascending Aortic Disruption 3. Percutaneous Left Femoral Arterial Cannulation for CPB 4. Perclose Closure of Femoral Artery x 2 5. Intercostal Nerve Block 12/23 Extubated and tolerating Beta annamarie therapy Diuresis Maintain CT to drainage Keep in ICU for today Incentive spirometry 12/24 Doing well Transfer [facility] Pulmonary toiletry Ambulate 12/25 chest tubes dc without difficulty on nasal cannula continue pulm toileting continue diuresis 12/26 remains in NSR, CXR noted atelectasis left lower lobe , small left effusion continue pulm toileting, nebs ezpap, gentle diuresis + BM ambulate , possible dc in am wean off 02 Objective: Vital Signs Date Time Temp Pulse Resp B/P Pulse Ox O2 Delivery O2 Flow Rate FiO2 12/26/16 09:41 97 Nasal Cannula 1.00 12/26/16 07:00 70 12/26/16 06:00 72 12/26/16 05:14 78 12/26/16 04:35 73 12/26/16 03:21 Nasal Cannula 2.00 12/26/16 03:00 98.5 76 113/67 98 12/26/16 03:00 71 12/26/16 02:10 74 12/26/16 01:00 74 12/26/16 00:44 97.5 82 116/75 100 12/26/16 00:43 Nasal Cannula 4.00 36 12/26/16 00:00 80 12/25/16 23:00 80 12/25/16 22:19 82 12/25/16 21:01 100 Nasal Cannula 12/25/16 21:00 82 12/25/16 20:00 84 12/25/16 19:00 83 12/25/16 19:00 Nasal Cannula 4.00 12/25/16 19:00 99.4 92 161/79 98 12/25/16 18:29 84 12/25/16 17:13 83 12/25/16 16:04 74 12/25/16 15:40 98.3 76 16 104/58 96 12/25/16 15:00 74 12/25/16 15:00 3.00 12/25/16 14:02 79 12/25/16 13:05 78 12/25/16 12:10 80 12/25/16 11:35 18 12/25/16 11:00 98.6 96 18 112/74 97 12/25/16 11:00 Nasal Cannula 3.00 12/25/16 11:00 76 12/25/16 10:00 99 Labs: Laboratory Tests Test 12/26/16 05:26 White Blood Count 8.5 TH/MM3 (4.0-11.0) Red Blood Count 2.54 MIL/MM3 (4.00-5.30) Hemoglobin 7.8 GM/DL (11.6-15.3) Hematocrit 23.7 % (35.0-46.0) Mean Corpuscular Volume 93.1 FL (80.0-100.0) Mean Corpuscular Hemoglobin 30.7 PG (27.0-34.0) Mean Corpuscular Hemoglobin 32.9 % Concent (32.0-36.0) Red Cell Distribution Width 14.1 % (11.6-17.2) Platelet Count 116 TH/MM3 (150-450) Mean Platelet Volume 10.1 FL (7.0-11.0) Sodium Level 138 MEQ/L (136-145) Potassium Level 3.7 MEQ/L (3.5-5.1) Chloride Level 99 MEQ/L (98-107) Carbon Dioxide Level 33.4 MEQ/L (21.0-32.0) Anion Gap 6 MEQ/L (5-15) Blood Urea Nitrogen 19 MG/DL (7-18) Creatinine 0.53 MG/DL (0.50-1.00) Estimat Glomerular Filtration 113 ML/MIN Rate (>89) Random Glucose 131 MG/DL (74-106) Calcium Level 7.9 MG/DL (8.5-10.1) Result Diagram: 12/26/1652512/26/16525 Telemetry: NSR (1) Aortic stenosis (2) S/P AVR (aortic valve replacement) Plan: ASA, plavix , BB statin continue pulm toileting nebs, ezpap acapella ambulate CXR small left effusion, atelectasis gentle diuresis dc narcotics, use tramadol CM to eval HHC (3) Blood loss anemia Plan: start on ferrous sulfate / HGB 7.8 stable Problem Qualifiers (1) Aortic stenosis: Qualified Code: I35.0 - Nonrheumatic aortic valve stenosis Mariama Rivera Dec 26, 2016 09:59
[2016-12-26] MEDS: FERROUS SULFATE 325 MG (65 MG ELEMENTAL IRON) TAB PO SCH ×2 (12:20→17:06)
[2016-12-26] MEDS ORDERED: POTASSIUM CHLORIDE 25 MEQ EFFERVESCENT TAB PO ONE (14:00)
[2016-12-26] MEDS: SENNOSIDES 8.6 MG TAB PO SCH (20:33)
[2016-12-27] VITALS (36 sets, daily range): BP systolic 107–170; BP diastolic 58–82; PULSE 67–118; RESP 16–20; TEMP 97.4–98.8; O2SAT 92–99
[2016-12-27] MEDS: ACETAMINOPHEN/HYDROcodone 325 MG/5 MG TAB PO PRN ×2 (00:22→20:17)
[2016-12-27] MEDS: PANTOPRAZOLE SOD 40 MG DELAYED RELEASE TAB PO SCH (05:42)
[2016-12-27] MEDS: INDIVIDUALIZED INSULIN NOVOLOG SUPPLEMENTAL SCALE SQ SCH ×4 (06:26→20:33)
[2016-12-27 07:13] LABS: HEMATOCRIT 24.4 % (35.0-46.0); MEAN CELL VOLUME 92.5 FL (80.0-100.0); MEAN CORPUSCULAR HGB CONC 32.4 % (32.0-36.0); PLATELET COUNT 159 TH/MM3 (150-450); RED BLOOD COUNT 2.64 MIL/MM3 (4.00-5.30); RED CELL DISTRIBUTION WIDTH 14.5 % (11.6-17.2); REVIEW FLAG FINAL; WHITE BLOOD COUNT 6.9 TH/MM3 (4.0-11.0)
[2016-12-27] MEDS: METOPROLOL TARTRATE 25 MG TAB PO SCH (07:21)
[2016-12-27 07:26] LABS: BICARBONATE 34.4 MEQ/L (21.0-32.0); POTASSIUM 4.1 MEQ/L (3.5-5.1)
[2016-12-27] MEDS: GABAPENTIN 400 MG CAP PO SCH ×2 (08:05→20:15)
[2016-12-27] MEDS: AMIODARONE 200 MG TAB PO SCH ×3 (08:05→20:17)
[2016-12-27] MEDS: MULTIVITAMINS/MINERALS THERAPEUTIC TAB PO SCH (08:05)
[2016-12-27] MEDS: CLOPIDOGREL 75 MG TAB PO SCH (08:05)
[2016-12-27] MEDS: POLYETHYLENE GLYCOL 17 GM PKG PO SCH (08:05)
[2016-12-27] MEDS: MAGNESIUM HYDROXIDE SUSP 30 ML CUP PO SCH (08:06)
[2016-12-27] MEDS: SODIUM CHLORIDE 0.9% FLUSH 10 ML FLUSH IV FLUSH SCH ×2 (08:06→20:29)
[2016-12-27] MEDS: traMADol HCL 50 MG TAB PO PRN ×2 (08:06→15:51)
[2016-12-27] MEDS: ASPIRIN 81 MG CHEW TAB PO SCH (08:06)
[2016-12-27] MEDS: MAGNESIUM OXIDE 400 MG TAB PO SCH (08:06)
[2016-12-27] MEDS: DOCUSATE SODIUM 100 MG CAP PO SCH ×2 (08:06→20:15)
[2016-12-27] MEDS: PRAVASTATIN SOD 20 MG TAB PO SCH (08:06)
[2016-12-27] MEDS ORDERED: FUROSEMIDE 40 MG/4 ML VIAL IV PUSH ONE (08:15)
[2016-12-27] MEDS ORDERED: POTASSIUM CHLORIDE 10 MEQ CONTROLLED RELEASE TAB PO ONE (08:15)
[2016-12-27 09:00] LABS: MAGNESIUM 2.3 MG/DL (1.5-2.5)
[2016-12-27] MEDS: METOPROLOL TARTRATE 50 MG TAB PO SCH ×2 (09:15→20:15)
[2016-12-27] MEDS: RESP: ALBUTEROL 2.5 MG/IPRATROPIUM 0.5 MG NEB (SCH) NEB ×2 (09:30→13:50)
[2016-12-27] MEDS ORDERED: AMIODARONE INJ 150 MG in DEXTROSE 5% IN WATER 100ML INJ 97 ML IV ONE ×2 (09:45)
[2016-12-27] MEDS ORDERED: FUROSEMIDE 20 MG/2 ML VIAL IV PUSH ONE (10:45)
--- NOTE | 2016-12-27 11:16 | PD.CAR.PN ---
CVT Progress Note CVT: POD #: 5 Subjective/Hospital Course: 71 yo female with symptomatic and AI presenting for AVR PMH: DM, GERD, HTN, HLP, venous insuff , mild non=hemodynamically significant coronary disease, preserved LV function 12/22 Underwent 1. Minimally Invasive AVR with a 23 Mosaic Cinch Tissue Valve 2. Median Sternotomy with Repair of Ascending Aortic Disruption 3. Percutaneous Left Femoral Arterial Cannulation for CPB 4. Perclose Closure of Femoral Artery x 2 5. Intercostal Nerve Block 12/23 Extubated and tolerating Beta annamarie therapy Diuresis Maintain CT to drainage Keep in ICU for today Incentive spirometry 12/24 Doing well Transfer [facility] Pulmonary toiletry Ambulate 12/25 chest tubes dc without difficulty on nasal cannula continue pulm toileting continue diuresis 12/26 remains in NSR, CXR noted atelectasis left lower lobe , small left effusion continue pulm toileting, nebs ezpap, gentle diuresis + BM ambulate , possible dc in am wean off 02 12/27 pt went into afib last night IV bolus amiodarone HGB 7.9/ pt weak becomes diaphoretic with exertion will give one unit PRBC electrolytes stable Objective: GENERAL: SKIN: Warm and dry. prevena to chest , incision intact ot leg HEAD: Normocephalic. EYES: No scleral icterus. No injection or drainage. NECK: Supple, trachea midline. No JVD or lymphadenopathy. CARDIOVASCULAR: irregular rate and rhythm without murmurs, gallops, or rubs. mild general edema RESPIRATORY: Breath sounds equal bilaterally. No accessory muscle use. GASTROINTESTINAL: Abdomen soft, non-tender, nondistended. MUSCULOSKELETAL: No cyanosis, or edema. BACK: Nontender without obvious deformity. No CVA tenderness. Vital Signs Date Time Temp Pulse Resp B/P Pulse Ox O2 Delivery O2 Flow Rate FiO2 12/27/16 09:31 94 Nasal Cannula 1.00 12/27/16 07:30 98.0 105 18 144/79 94 12/27/16 07:30 94 Nasal Cannula 1.50 12/27/16 07:00 107 12/27/16 06:24 103 12/27/16 05:53 74 12/27/16 04:00 69 12/27/16 03:00 68 12/27/16 03:00 Nasal Cannula 2.00 36 12/27/16 03:00 97.9 69 118/72 99 12/27/16 02:35 68 12/27/16 01:00 82 12/27/16 00:42 98.2 101 170/82 94 12/27/16 00:39 Nasal Cannula 2.00 36 12/27/16 00:00 90 12/26/16 23:00 104 12/26/16 22:00 98 12/26/16 21:00 94 12/26/16 20:20 97 Nasal Cannula 1.00 12/26/16 20:00 92 12/26/16 19:00 Nasal Cannula 2.00 36 12/26/16 19:00 97 12/26/16 19:00 99.0 80 144/77 96 12/26/16 18:00 80 12/26/16 17:01 80 12/26/16 16:06 77 12/26/16 15:30 98.0 78 20 126/70 92 12/26/16 15:30 92 Nasal Cannula 2.00 12/26/16 15:00 64 12/26/16 14:00 77 12/26/16 13:00 78 12/26/16 12:01 77 12/26/16 11:30 98.8 83 20 118/67 91 Labs: Laboratory Tests Test 12/27/16 06:25 White Blood Count 6.9 TH/MM3 (4.0-11.0) Red Blood Count 2.64 MIL/MM3 (4.00-5.30) Hemoglobin 7.9 GM/DL (11.6-15.3) Hematocrit 24.4 % (35.0-46.0) Mean Corpuscular Volume 92.5 FL (80.0-100.0) Mean Corpuscular Hemoglobin 30.0 PG (27.0-34.0) Mean Corpuscular Hemoglobin 32.4 % Concent (32.0-36.0) Red Cell Distribution Width 14.5 % (11.6-17.2) Platelet Count 159 TH/MM3 (150-450) Mean Platelet Volume 9.4 FL (7.0-11.0) Sodium Level 142 MEQ/L (136-145) Potassium Level 4.1 MEQ/L (3.5-5.1) Chloride Level 102 MEQ/L (98-107) Carbon Dioxide Level 34.4 MEQ/L (21.0-32.0) Anion Gap 6 MEQ/L (5-15) Blood Urea Nitrogen 13 MG/DL (7-18) Creatinine 0.51 MG/DL (0.50-1.00) Estimat Glomerular Filtration 119 ML/MIN Rate (>89) Random Glucose 102 MG/DL (74-106) Calcium Level 8.4 MG/DL (8.5-10.1) Phosphorus Level 3.1 MG/DL (2.5-4.9) Magnesium Level 2.3 MG/DL (1.5-2.5) Result Diagram: 12/27/1662412/27/16624 Telemetry: AFIB (1) Aortic stenosis (2) S/P AVR (aortic valve replacement) Plan: ASA, plavix , BB statin continue pulm toileting nebs, ezpap acapella ambulate CXR small left effusion, atelectasis gentle diuresis continue increase activity dc narcotics, use tramadol CM to eval HHC (3) Blood loss anemia Plan: start on ferrous sulfate / HGB 7.8 stable > 7.9 symptomatic, will transfuse one unit PRBC (4) Afib Plan: IV amiodarone ray v score 3 eval for anticoagulation if pt afib > 24 hrs Problem Qualifiers (1) Aortic stenosis: Qualified Code: I35.0 - Nonrheumatic aortic valve stenosis Mariama Rivera Dec 27, 2016 11:16
[2016-12-27] MEDS: FERROUS SULFATE 325 MG (65 MG ELEMENTAL IRON) TAB PO SCH ×2 (11:54→17:00)
--- NOTE | 2016-12-27 16:24 | EKG ---
Date Performed: 12/27/2016 Time Performed: 12:45:00 PTAGE: 71 years EKG: CONSIDER ACUTE ST ELEVATION MT Sinus rhythm Inferior ST elevation, CONSIDER ACUTE INFARCT Septal ST changes are nonspecific Abnormal ECG PREVIOUS TRACING : 12/23/2016 05.30 Compared to previous tracing, lateral T wave inversion is n o longer evident. DOCTOR: Parminder Stack Interpretating Date/Time 12/27/2016 16:23:40
[2016-12-27] MEDS: SENNOSIDES 8.6 MG TAB PO SCH (20:15)
[2016-12-28] VITALS (30 sets, daily range): BP systolic 12–143; BP diastolic 59–76; PULSE 66–85; RESP 18–22; TEMP 98–98.6; O2SAT 93–100
[2016-12-28] MEDS: ACETAMINOPHEN/HYDROcodone 325 MG/5 MG TAB PO PRN (04:13)
--- NOTE | 2016-12-28 06:00 | RADRPT ---
EXAM DATE/TIME: 12/28/2016 04:55 [facility] COMPARISON: CHEST SINGLE AP, December 26, 2016, 5:39. INDICATIONS : Follow up pleural effusion. MEDICAL HISTORY : Cardiovascular disease. SURGICAL HISTORY : CABG. ENCOUNTER: Subsequent ACUITY: 3 days PAIN SCORE: 6/10 LOCATION: Bilateral chest FINDINGS: Single AP view of the chest. Cardiac silhouette enlargement unchanged. Median sternotomy wires. Persi stent left greater than right lower lobe consolidation versus atelectasis. Small left pleural effusio n unchanged. No evidence of pneumothorax. CONCLUSION: No significant interval change. Jason Caldwell MD on December 28, 2016 at 5:58 Board Certified Radiologist. This report was verified electronically.
[2016-12-28] MEDS: PANTOPRAZOLE SOD 40 MG DELAYED RELEASE TAB PO SCH (06:02)
[2016-12-28] MEDS: INDIVIDUALIZED INSULIN NOVOLOG SUPPLEMENTAL SCALE SQ SCH ×4 (06:05→20:38)
[2016-12-28] MEDS: POLYETHYLENE GLYCOL 17 GM PKG PO SCH (08:32)
[2016-12-28] MEDS: MULTIVITAMINS/MINERALS THERAPEUTIC TAB PO SCH (08:33)
[2016-12-28] MEDS: PRAVASTATIN SOD 20 MG TAB PO SCH (08:33)
[2016-12-28] MEDS: MAGNESIUM OXIDE 400 MG TAB PO SCH (08:33)
[2016-12-28] MEDS: GABAPENTIN 400 MG CAP PO SCH (08:33)
[2016-12-28] MEDS: DOCUSATE SODIUM 100 MG CAP PO SCH ×2 (08:34→20:29)
[2016-12-28] MEDS: ASPIRIN 81 MG CHEW TAB PO SCH (08:34)
[2016-12-28] MEDS: CLOPIDOGREL 75 MG TAB PO SCH (08:34)
[2016-12-28] MEDS: METOPROLOL TARTRATE 50 MG TAB PO SCH ×2 (08:34→20:30)
[2016-12-28] MEDS: AMIODARONE 200 MG TAB PO SCH ×2 (08:34→20:29)
[2016-12-28] MEDS: SODIUM CHLORIDE 0.9% FLUSH 10 ML FLUSH IV FLUSH SCH ×2 (08:35→20:31)
[2016-12-28] MEDS: MAGNESIUM HYDROXIDE SUSP 30 ML CUP PO SCH (08:35)
[2016-12-28 10:12] LABS: HEMATOCRIT 26.8 % (35.0-46.0); MEAN CELL VOLUME 88.9 FL (80.0-100.0); MEAN CORPUSCULAR HEMOGLOBIN 30.4 PG (27.0-34.0); MEAN CORPUSCULAR HGB CONC 34.2 % (32.0-36.0); PLATELET COUNT 225 TH/MM3 (150-450); RED BLOOD COUNT 3.01 MIL/MM3 (4.00-5.30); RED CELL DISTRIBUTION WIDTH 15.4 % (11.6-17.2); REVIEW FLAG FINAL; WHITE BLOOD COUNT 8.7 TH/MM3 (4.0-11.0)
[2016-12-28] MEDS: traMADol HCL 50 MG TAB PO PRN (10:39)
[2016-12-28 10:45] LABS: BICARBONATE 33.6 MEQ/L (21.0-32.0); MAGNESIUM 2.3 MG/DL (1.5-2.5); POTASSIUM 3.9 MEQ/L (3.5-5.1)
--- NOTE | 2016-12-28 10:56 | PD.CAR.PN ---
CVT Progress Note CVT: POD #: 6 Subjective/Hospital Course: 71 yo female with symptomatic and AI presenting for AVR PMH: DM, GERD, HTN, HLP, venous insuff , mild non=hemodynamically significant coronary disease, preserved LV function 12/22 Underwent 1. Minimally Invasive AVR with a 23 Mosaic Cinch Tissue Valve 2. Median Sternotomy with Repair of Ascending Aortic Disruption 3. Percutaneous Left Femoral Arterial Cannulation for CPB 4. Perclose Closure of Femoral Artery x 2 5. Intercostal Nerve Block 12/23 Extubated and tolerating Beta annamarie therapy Diuresis Maintain CT to drainage Keep in ICU for today Incentive spirometry 12/24 Doing well Transfer [facility] Pulmonary toiletry Ambulate 12/25 chest tubes dc without difficulty on nasal cannula continue pulm toileting continue diuresis 12/26 remains in NSR, CXR noted atelectasis left lower lobe , small left effusion continue pulm toileting, nebs ezpap, gentle diuresis + BM ambulate , possible dc in am wean off 02 12/27 pt went into afib last night IV bolus amiodarone HGB 7.9/ pt weak becomes diaphoretic with exertion will give one unit PRBC electrolytes stable 12/28 HGB improved to 9.2/ post blood transfusion + weight , gentle diuresis CXR noted, still has some consolidation right lower lobe, concern for early pna start levaquin IV remains in NSR ,will stop norco Objective: GENERAL: SKIN: Warm and dry. prevena to chest , incision intact to right chest HEAD: Normocephalic. EYES: No scleral icterus. No injection or drainage. NECK: Supple, trachea midline. No JVD or lymphadenopathy. CARDIOVASCULAR: Regular rate and rhythm without murmurs, gallops, or rubs., general edema RESPIRATORY: diminished in bases R>L , few coarse breath sounds Breath sounds equal bilaterally. No accessory muscle use. GASTROINTESTINAL: Abdomen soft, non-tender, nondistended. MUSCULOSKELETAL: No cyanosis, or edema. BACK: Nontender without obvious deformity. No CVA tenderness. Vital Signs Date Time Temp Pulse Resp B/P Pulse Ox O2 Delivery O2 Flow Rate FiO2 12/28/16 10:01 85 12/28/16 09:00 72 12/28/16 08:00 68 12/28/16 08:00 98 Nasal Cannula 1.00 12/28/16 08:00 98.1 72 19 143/73 98 12/28/16 07:00 70 12/28/16 06:14 67 12/28/16 05:42 16 12/28/16 04:37 98 Nasal Cannula 1.50 12/28/16 04:00 76 12/28/16 03:30 98.4 70 18 121/70 98 12/28/16 03:00 69 12/28/16 02:00 76 12/28/16 01:00 67 12/28/16 00:00 70 12/27/16 23:55 95 Nasal Cannula 1.00 12/27/16 23:30 97.5 69 16 107/58 97 12/27/16 23:00 67 12/27/16 22:00 80 12/27/16 21:00 95 Nasal Cannula 1.00 12/27/16 21:00 76 12/27/16 20:00 84 12/27/16 19:45 98.7 77 18 144/74 95 12/27/16 19:30 92 Nasal Cannula 2.00 12/27/16 19:00 91 12/27/16 17:28 98.4 80 18 149/78 97 12/27/16 17:00 80 12/27/16 16:01 80 12/27/16 15:52 81 12/27/16 15:00 97 Nasal Cannula 1.00 12/27/16 15:00 98.8 82 20 129/78 97 12/27/16 14:05 78 12/27/16 13:36 98.8 75 18 127/74 98 12/27/16 13:31 98.3 74 18 119/69 98 12/27/16 13:26 98.6 75 18 127/74 98 12/27/16 13:23 73 12/27/16 13:16 98.5 73 18 119/64 97 12/27/16 12:25 68 12/27/16 11:30 94 Nasal Cannula 1.00 12/27/16 11:30 97.4 67 20 107/67 94 12/27/16 11:00 80 Labs: Laboratory Tests Test 12/28/16 09:35 White Blood Count 8.7 TH/MM3 (4.0-11.0) Red Blood Count 3.01 MIL/MM3 (4.00-5.30) Hemoglobin 9.2 GM/DL (11.6-15.3) Hematocrit 26.8 % (35.0-46.0) Mean Corpuscular Volume 88.9 FL (80.0-100.0) Mean Corpuscular Hemoglobin 30.4 PG (27.0-34.0) Mean Corpuscular Hemoglobin 34.2 % Concent (32.0-36.0) Red Cell Distribution Width 15.4 % (11.6-17.2) Platelet Count 225 TH/MM3 (150-450) Mean Platelet Volume 9.3 FL (7.0-11.0) Result Diagram: 12/28/16 0935 12/27/16 0625 Telemetry: NSR (1) Aortic stenosis (2) S/P AVR (aortic valve replacement) Plan: ASA, plavix , BB statin continue pulm toileting nebs, ezpap acapella ambulate CXR small left effusion, atelectasis gentle diuresis continue increase activity dc narcotics, use tramadol CM to eval HHC (3) Blood loss anemia Plan: start on ferrous sulfate / HGB 7.8 stable > 7.9 symptomatic,> 9.2 after PRBC (4) Afib Plan: resolved po amiodarone (5) Atelectasis, bilateral Plan: aggressive pulm toileting resume nebs, ezpap acapella OOB ambulate, start levaquin Problem Qualifiers (1) Aortic stenosis: Qualified Code: I35.0 - Nonrheumatic aortic valve stenosis Mariama Rivera Dec 28, 2016 10:56
[2016-12-28] MEDS ORDERED: POTASSIUM CHLORIDE 10 MEQ CONTROLLED RELEASE TAB PO ONE (11:00)
[2016-12-28] MEDS ORDERED: FUROSEMIDE 40 MG/4 ML VIAL IV PUSH ONE (11:00)
--- NOTE | 2016-12-28 11:18 | PD.WCN.NOT ---
Wound Consult Description: L inner buttock Communicated with: ELIEZER Donis [facility] Recommendation: Recommend to cleanse buttock area with soap and water and apply thick layer of Calazime barrier cream and leave open to air. Additional Information: Patient seen on [facility] for screening of possible pressure injury noted with nursing assessment. Patient turned to R side with assistance health science writer and Shannan NORWOOD to reveal non blanchable area of erythema measuring to the L inner buttock measuring 2.2cm x 1 cm with surrounding blanchable erythema.Non blanchable erythema to intact skin indicates stage 1 pressure injury Repositioned patient to R side. Applied thick layer of Calazime barrier cream and L stage 1 pressure injury open to air. Ostomy Date of Surgery: Dec 22, 2016 Kerry Ledesma Dec 28, 2016 11:18
[2016-12-28] MEDS: LEVOFLOXACIN 750 MG PREMIX INJ 150 ML IV SCH (11:54)
[2016-12-28] MEDS: FERROUS SULFATE 325 MG (65 MG ELEMENTAL IRON) TAB PO SCH ×2 (11:54→16:58)
[2016-12-28] MEDS ORDERED: ONDANSETRON HCL 4 MG/2 ML VIAL IV PUSH PRN (13:00)
[2016-12-28] MEDS: RESP: ALBUTEROL 2.5 MG/IPRATROPIUM 0.5 MG NEB (SCH) NEB ×2 (14:39→19:38)
[2016-12-28] MEDS ORDERED: ACETAMINOPHEN 325 MG TAB PO PRN (15:00)
[2016-12-28] MEDS: ACETAMINOPHEN 325 MG TAB PO PRN ×2 (16:30→22:55)
[2016-12-28] MEDS: SENNOSIDES 8.6 MG TAB PO SCH (20:29)
[2016-12-28] MEDS: GABAPENTIN 300 MG CAP PO SCH (20:30)
[2016-12-29] VITALS (19 sets, daily range): BP systolic 118–138; BP diastolic 62–80; PULSE 62–97; RESP 18; TEMP 98.1–98.3; O2SAT 92–97
[2016-12-29] MEDS: ACETAMINOPHEN 325 MG TAB PO PRN ×2 (01:32→10:49)
[2016-12-29] MEDS: PANTOPRAZOLE SOD 40 MG DELAYED RELEASE TAB PO SCH (05:57)
[2016-12-29] MEDS: INDIVIDUALIZED INSULIN NOVOLOG SUPPLEMENTAL SCALE SQ SCH ×2 (06:06→10:50)
[2016-12-29] MEDS: RESP: ALBUTEROL 2.5 MG/IPRATROPIUM 0.5 MG NEB (SCH) NEB ×2 (07:57→13:17)
[2016-12-29] MEDS: DOCUSATE SODIUM 100 MG CAP PO SCH (08:10)
[2016-12-29] MEDS: PRAVASTATIN SOD 20 MG TAB PO SCH (08:11)
[2016-12-29] MEDS: GABAPENTIN 300 MG CAP PO SCH (08:11)
[2016-12-29] MEDS: AMIODARONE 200 MG TAB PO SCH (08:11)
[2016-12-29] MEDS: CLOPIDOGREL 75 MG TAB PO SCH (08:11)
[2016-12-29] MEDS: ASPIRIN 81 MG CHEW TAB PO SCH (08:11)
[2016-12-29] MEDS: MULTIVITAMINS/MINERALS THERAPEUTIC TAB PO SCH (08:11)
[2016-12-29] MEDS: MAGNESIUM OXIDE 400 MG TAB PO SCH (08:12)
[2016-12-29] MEDS: POLYETHYLENE GLYCOL 17 GM PKG PO SCH (08:12)
[2016-12-29] MEDS: METOPROLOL TARTRATE 50 MG TAB PO SCH (08:12)
[2016-12-29] MEDS: MAGNESIUM HYDROXIDE SUSP 30 ML CUP PO SCH (08:12)
[2016-12-29] MEDS: SODIUM CHLORIDE 0.9% FLUSH 10 ML FLUSH IV FLUSH SCH (08:12)
[2016-12-29] MEDS: FERROUS SULFATE 325 MG (65 MG ELEMENTAL IRON) TAB PO SCH (10:45)
[2016-12-29] MEDS: LEVOFLOXACIN 750 MG PREMIX INJ 150 ML IV SCH (10:47)
[2016-12-29] MEDS ORDERED: DOCU1CAP39 PO (14:12)
[2016-12-29] MEDS ORDERED: XARE20TA PO (14:12)
[2016-12-29] MEDS ORDERED: THERM PO (14:12)
[2016-12-29] MEDS ORDERED: FERR325T20 PO (14:12)
[2016-12-29] MEDS ORDERED: AMIO200T PO (14:12)
[2016-12-29] MEDS ORDERED: AMIO400T PO (14:21)
--- NOTE | 2016-12-29 14:26 | HHI.DS ---
Discharge Summary Admission Date Dec 22, 2016 at 05:40 Discharge Date: Dec 29, 2016 Admitting Diagnosis aortic stenosis (1) Aortic stenosis Diagnosis: Principal (2) S/P AVR (aortic valve replacement) Diagnosis: Secondary (3) Blood loss anemia Diagnosis: Secondary (4) Afib Diagnosis: Secondary Procedures 12/22/16 1. Minimally Invasive AVR with a 23 Mosaic Cinch Tissue Valve 2. Median Sternotomy with Repair of Ascending Aortic Disruption 3. Percutaneous Left Femoral Arterial Cannulation for CPB 4. Perclose Closure of Femoral Artery x 2 5. Intercostal Nerve Block Brief History 71 yo female with symptomatic and AI presenting for AVR PMH: DM, GERD, HTN, HLP, venous insuff , mild non=hemodynamically significant coronary disease, preserved LV function 12/22 Underwent 1. Minimally Invasive AVR with a 23 Mosaic Cinch Tissue Valve 2. Median Sternotomy with Repair of Ascending Aortic Disruption 3. Percutaneous Left Femoral Arterial Cannulation for CPB 4. Perclose Closure of Femoral Artery x 2 5. Intercostal Nerve Block CBC/BMP: 12/28/16 0935 12/28/16 0935 Significant Findings Laboratory Tests Test 12/27/16 12/28/16 06:25 09:35 Red Blood Count 2.64 MIL/MM3 3.01 MIL/MM3 (4.00-5.30) (4.00-5.30) Hemoglobin 7.9 GM/DL 9.2 GM/DL (11.6-15.3) (11.6-15.3) Hematocrit 24.4 % 26.8 % (35.0-46.0) (35.0-46.0) Carbon Dioxide Level 34.4 MEQ/L 33.6 MEQ/L (21.0-32.0) (21.0-32.0) Calcium Level 8.4 MG/DL (8.5-10.1) Chloride Level 97 MEQ/L (98-107) Creatinine 0.49 MG/DL (0.50-1.00) Random Glucose 151 MG/DL (74-106) Imaging Last Impressions Chest X-Ray 12/28/16 0600 Signed Impressions: Service Date/Time: December 04:55 - CONCLUSION: No significant interval change. Jason Caldwell MD Pt Condition on Discharge: Good Discharge Disposition: Disch w/ Home Health Serv Discharge Instructions DIET: Follow Instructions for: Heart Healthy Diet Activities you can perform: Shower Only-No Bath Activities to avoid: Strenuous Activity, Driving Additional Activity Instructio: no lifting > 8 lbs or gallon of milk Mariama Rivera Dec 29, 2016 14:26
[2016-12-29] MEDS ORDERED: LEVA500T20 PO (14:27)
[2016-12-29] MEDS ORDERED: RIVAROXABAN 20 MG TAB PO SCH (15:00)
[2016-12-29] MEDS ORDERED: POTA-163 PO (15:01)
[2016-12-29] MEDS ORDERED: FURO1TAB60 PO (15:01)
== END 2016-12-29 16:27 | disposition home health service (06) | DRG 220 ==
LOC: HSDI 12-22 05:40 → HCVR 12-22 15:51 → HCIN 12-24 16:40
PROVIDERS: ADMIT Thoracic Surgery (Cardiothoracic Vascular Surgery); ATTEND Thoracic Surgery (Cardiothoracic Vascular Surgery)
PROC: 5A1221Z Performance of Cardiac Output, Continuous (ICD-10-PCS; 2016-12-22)
PROC: 3E0T3CZ (ICD-10-PCS; 2016-12-22)
PROC: B246ZZ4 Ultrasonography of Right and Left Heart, Transesophageal (ICD-10-PCS; 2016-12-22)
PROC: 30233K1 Transfusion of Nonautologous Frozen Plasma into Peripheral Vein, Percutaneous Approach (ICD-10-PCS; 2016-12-22)
PROC: 30233N1 Transfusion of Nonautologous Red Blood Cells into Peripheral Vein, Percutaneous Approach (ICD-10-PCS; 2016-12-22)
PROC: 02RF08Z Replacement of Aortic Valve with Zooplastic Tissue, Open Approach (ICD-10-PCS; principal; 2016-12-22 07:04)
PROC: 02QX0ZZ Repair Thoracic Aorta, Ascending/Arch, Open Approach (ICD-10-PCS; 2016-12-22 07:04)
PROC: 30233R1 Transfusion of Nonautologous Platelets into Peripheral Vein, Percutaneous Approach (ICD-10-PCS; 2016-12-27)
DX: I35.2 Nonrheumatic aortic (valve) stenosis with insufficiency (principal); J98.11 Atelectasis; L89.321 Pressure ulcer of left buttock, stage 1; J90 Pleural effusion, not elsewhere classified; I48.91 Unspecified atrial fibrillation; E11.9 Type 2 diabetes mellitus without complications; I10 Essential (primary) hypertension; D50.0 Iron deficiency anemia secondary to blood loss (chronic); I70.0 Atherosclerosis of aorta; E78.5 Hyperlipidemia, unspecified; K21.9 Gastro-esophageal reflux disease without esophagitis; I87.2 Venous insufficiency (chronic) (peripheral); I25.10 Atherosclerotic heart disease of native coronary artery without angina pectoris
CPT/HCPCS: 36430; 71010; 76937; 80048; 82948; 83735; 84100; 85014; 85025; 85027; 85610; 85730; 86850; 86900; 86901; 86920; 86927; 86965; 87015; 87070; 87102; 87116; 87205; 87206; 88305; 88311; 93005; 93318; 94002; 94003; 94150; 94640; 94664; 94667; 94668; C9248; C9290; J0131; J0282; J0690; J1100; J1250; J1644; J1815; J1817; J1885; J1940; J1956; J2150; J2250; J2270; J2405; J2720; J3010; J3475; J3480; J7030; J7040; J7050; J7120; P9016; P9017; P9035; P9047

== ENCOUNTER → 2016-12-20 | Outpatient (CLI) | payer OTHER ==
[~2016-12-20] MED LIST changes: +AMIO200T PO; +AMIO400T PO; +ASPI-110 PO; +DOCU1CAP39 PO; +FERR325T20 PO; +FURO1TAB60 PO; +GABA300C5 PO; +LEVA500T20 PO; +LISI-515 PO; +MAGN400T2 PO; +METF500T PO; +METO50TA PO; +PANT40TA3 PO; +POTA-163 PO; +PYRI1TAB5 PO; +THERM PO; +XARE20TA PO
[2016-12-20 15:12] LABS: AUTOMATED NEUTROPHIL # 4.6 TH/MM3 (1.8-7.7); BASOPHIL # 0.1 TH/MM3 (0-0.2); BASOPHIL % 0.8 % (0.0-2.0); EOSINOPHIL # 0.3 TH/MM3 (0-0.4); EOSINOPHIL % 3.4 % (0.0-4.0); HEMATOCRIT 39.9 % (35.0-46.0); HEMO FLAGS DIFF FINAL; LYMPH % 22.4 % (9.0-44.0); LYMPHOCYTE # 1.7 TH/MM3 (1.0-4.8); MEAN CELL VOLUME 90.9 FL (80.0-100.0); MEAN CORPUSCULAR HEMOGLOBIN 29.6 PG (27.0-34.0); MEAN CORPUSCULAR HGB CONC 32.5 % (32.0-36.0); NEUT % 60.4 % (16.0-70.0); PLATELET COUNT 182 TH/MM3 (150-450); RED BLOOD COUNT 4.39 MIL/MM3 (4.00-5.30); RED CELL DISTRIBUTION WIDTH 13.7 % (11.6-17.2); WHITE BLOOD COUNT 7.6 TH/MM3 (4.0-11.0)
[2016-12-20 15:13] LABS: BLOOD, URINE NEG (NEG); COMMENT (UR) CULT NOT INDICATED; CULTURE IF INDICATED CULT NOT INDICATED; GLUCOSE,URINE NEG (NEG); KETONE, URINE NEG (NEG); NITRITE,URINE NEG (NEG); PH, URINE 7.5 (5.0-8.5); SQUAMOUS EPITHELIAL CELL URINE <1 /hpf (0-5); URINE COLOR YELLOW (YELLW/STRAW)
[2016-12-20 15:24] LABS: ANION GAP 6 MEQ/L (5-15); BICARBONATE 33.4 MEQ/L (21.0-32.0); BLOOD UREA NITROGEN 16 MG/DL (7-18); CHLORIDE 104 MEQ/L (98-107); GLOMERULAR FILTRATION RATE 87 ML/MIN (>89); POTASSIUM 3.6 MEQ/L (3.5-5.1); SODIUM (NA) 143 MEQ/L (136-145)
[2016-12-20 15:25] LABS: PROTHROMBIN TIME - PATIENT 11.4 SEC (9.8-11.6)
--- NOTE | 2016-12-20 16:22 | RADRPT ---
EXAM DATE/TIME: 12/20/2016 15:25 [facility] COMPARISON: No previous studies available for comparison. INDICATIONS : Pre op cardiac surgery. MEDICAL HISTORY : Hypercholesterolemia. Hypertension. Arthritis. Hyperlipidemia. SURGICAL HISTORY : section. Oophrectomy. ENCOUNTER: Initial ACUITY: 1 day PAIN SCORE: 1/10 LOCATION: Bilateral neck PEAK SYSTOLIC VELOCITIES (cm/sec): ICA/CCA RATIO: Right: 1.4 Left: 1.4 ICA: Right: 95 Left: 87 CCA: Right: 66 Left: 60 ECA: Right: 70 Left: 55 VERTEBRAL: Right: 51 antegrade Left: 78 antegrade Elevated flow velocities and ICA/CCA ratios have been found to correlate with increased degrees of vessel stenosis, calculated as percentage of diameter relative to a normal segment of distal ICA/CCA FINDINGS: RIGHT CAROTID: There is mild atherosclerotic plaquing at the carotid bifurcation. The internal carotid artery is tor tuous. No significant stenosis is visualized. The waveforms are within normal limits. LEFT CAROTID: There is mild atherosclerotic plaquing at the carotid bifurcation. The internal carotid artery is tor tuous. No significant stenosis is visualized. The waveforms are within normal limits. VERTEBRAL ARTERIES: Antegrade flow is seen in both vertebral arteries. MISCELLANEOUS: None. CONCLUSION: 1. Mild atherosclerotic plaquing at both carotid bifurcations. 2. No focal high grade or hemodynamically significant stenosis. Andrew Pham MD on December 20, 2016 at 16:19 Board Certified Radiologist. This report was verified electronically.
--- NOTE | 2016-12-20 16:50 | RADRPT ---
EXAM DATE/TIME: 12/20/2016 16:28 [facility] COMPARISON: No previous studies available for comparison. INDICATIONS : Pre op for CABG. MEDICAL HISTORY : Hypertension. Arthritis. Hypercholesterolemia. Hyperlipidemia SURGICAL HISTORY : section. oophorectomy ENCOUNTER: Initial ACUITY: 1 day PAIN SCORE: 0/10 LOCATION: Bilateral upper chest FINDINGS: PA and lateral views of the chest demonstrate the lungs to be symmetrically aerated without evidence of mass, infiltrate or effusion. The heart size is enlarged.. Osseous structures are intact. CONCLUSION: 1. No acute pulmonary infiltrates. 2. Compensated cardiomegaly. Andrew Pham MD on December 20, 2016 at 16:47 Board Certified Radiologist. This report was verified electronically.
[2016-12-20 17:21] LABS: HEMOGLOBIN A1a 1.2 %; HEMOGLOBIN Ao 84.5 %; HEMOGLOBIN F 0.9 %; HEMOGLOBIN P3 3.9 %
[2016-12-20 17:45] LABS: MRSA PCR NEGATIVE (NEGATIVE); STAPH AUREUS PCR NEGATIVE (NEGATIVE)
--- NOTE | 2016-12-21 19:02 | EKG ---
Date Performed: 12/20/2016 Time Performed: 14:31:09 PTAGE: 71 years EKG: Sinus rhythm POSSIBLE LEFT ATRIAL ENLARGEMENT LEFT VENTRICULAR HYPERTROPHY WITH ASSOCIATED NONSPECIFIC ST-T WAVE CHANGES NONSPECIFIC T-WAVE ABNORMALITY Possible old anterior wall infarct. Compared to previous ashely ng, the patient has developed progressive criteria for Left ventricular hypertrophy, and there's been some increase in the lateral T wave changes. No other significant serial change ABNORMAL ECG PREVIOUS TRACING : 02/11/2015 10.40 DOCTOR: She Vargas Interpretating Date/Time 12/21/2016 19:02:25
--- NOTE | 2016-12-26 10:15 | RSPPFT ---
DATE OF PROCEDURE: 12/20/16 COMMENTS: VOLUMES DYNAMIC: FVC and FEV1 moderately reduced. FLOWS: FEV1% normal; FEF 25-75 mildly reduced. IMPRESSION: This is probably a moderate restrictive ventilatory defect. There is no large airways obstruction and terminal airflow obstruction which can be associated with low lung volumes. However, full lung volumes and post-bronchodilator study may be helpful if clinically indicated.
== END ==
LOC: CPRE 13:18
PROVIDERS: ATTEND Thoracic Surgery (Cardiothoracic Vascular Surgery)
DX: Z01.810 Encounter for preprocedural cardiovascular examination (principal); Z01.812 Encounter for preprocedural laboratory examination; Z01.811 Encounter for preprocedural respiratory examination; I35.0 Nonrheumatic aortic (valve) stenosis; I51.7 Cardiomegaly; I10 Essential (primary) hypertension
CPT/HCPCS: 71020; 80048; 81001; 83036; 85025; 85610; 87640; 87641; 93005; 93880; 94010